=== PATIENT | male | born 1985 ===

== ENCOUNTER 2018-03-22 16:55 | Emergency (ER) | payer OTHER ==
[2018-03-22 17:26] VITALS: BP 116/74; PULSE 68; RESP 16; TEMP 98.6; O2SAT 99
--- NOTE | 2018-03-22 17:35 | ED PDOC ---
HPI: Back Time Seen by Provider: 03/22/18 17:27 Chief Complaint (Nursing): Back Pain Chief Complaint (Provider): low back pain History Per: Patient History/Exam Limitations: no limitations Onset/Duration Of Symptoms: Days (x7) Current Symptoms Are (Timing): Still Present Additional Complaint(s): 32 y/o male with a PMHx of lumbar herniated disks presents with low back pain that started last week. Aleve has helped the pain somewhat. Patient denies any acute bowel or bladder dysfunction, no fever or chills. PMD: none Past Medical History Reviewed: Historical Data, Nursing Documentation, Vital Signs Vital Signs: Last Vital Signs Temp 98.6 F 03/22/18 17:24 Pulse 68 03/22/18 17:24 Resp 16 03/22/18 17:24 BP 116/74 03/22/18 17:24 Pulse Ox 99 03/22/18 17:24 - Medical History PMH: Back Problems, Chronic Pain (Back pain) Other PMH: Herniated Disk in 2014 - Surgical History Other surgeries: right foot surgery - Family History Family History: States: No Known Family Hx - Living Arrangements Living Arrangements: With Family - Social History Current smoker - smoking cessation education provided: No Alcohol: None Drugs: Denies - Home Medications Home Medications: Ambulatory Orders Medication Instructions Recorded Cyclobenzaprine [Cyclobenzaprine 10 mg PO TID PRN #20 tab 03/22/18 HCl] Naproxen [Naprosyn] 500 mg PO BID #20 tab 03/22/18 - Allergies Allergies/Adverse Reactions: Allergies Allergy/AdvReac Type Severity Reaction Status Date / Time No Known Allergies Allergy Verified 03/22/18 17:26 Review of Systems ROS Statement: Except As Marked, All Systems Reviewed And Found Negative Constitutional: Negative for: Fever Genitourinary Male: Negative for: Dysuria, Frequency, Incontinence, Hematuria Musculoskeletal: Positive for: Back Pain Physical Exam - Reviewed Nursing Documentation Reviewed: Yes Vital Signs Reviewed: Yes - Physical Exam Appears: Positive for: Well, No Acute Distress Skin: Positive for: Normal Color Eye Exam: Positive for: Normal appearance, EOMI Neck: Positive for: Normal, Painless ROM Cardiovascular/Chest: Positive for: Regular Rate, Rhythm Respiratory: Positive for: Normal Breath Sounds Back: Positive for: Other (Left paraspinal tenderness along lumbar region with muscle spasm). Negative for: L CVA Tenderness, R CVA Tenderness Extremity: Positive for: Normal ROM. Negative for: Deformity Neurologic/Psych: Positive for: Alert, Oriented, Gait (steady). Negative for: Motor/Sensory Deficits - ECG O2 Sat by Pulse Oximetry: 99 (RA) Pulse Ox Interpretation: Normal Medical Decision Making Medical Decision Making: Impression: Acute on chronic low back pain Plan: IM toradol in ED Patient with exacerbation of chronic back pain. Prescriptions given for Naprosyn and Flexeril. He was referred to orthopedist for follow-up. Scribe Attestation: Documented by Christina Miller, acting as a scribe for Jagruti Ang PA-C. Provider Scribe Attestation: All medical record entries made by the Scribe were at my direction and personally dictated by me. I have reviewed the chart and agree that the record accurately reflects my personal performance of the history, physical exam, medical decision making, and the department course for this patient. I have also personally directed, reviewed, and agree with the discharge instructions and disposition. Disposition - Clinical Impression Clinical Impression: Back pain - Patient ED Disposition Is Patient to be Admitted: No Counseled Patient/Family Regarding: Diagnosis, Need For Followup, Rx Given - Disposition Referrals: Grzegorz Leonardo MD [Staff Provider] - Disposition: Routine/Home Disposition Time: 17:34 Condition: STABLE Additional Instructions: Take prescription meds as directed as needed for pain. Follow up as soon as possible with orthopedist for further evaluation. Prescriptions: Cyclobenzaprine [Cyclobenzaprine HCl] 10 mg PO TID PRN #20 tab PRN Reason: Muscle Spasm Naproxen [Naprosyn] 500 mg PO BID #20 tab Instructions: Low Back Pain in Adults, Back Exercises Forms: [employer] (Bengali), [facility] ED School/Work Excuse
== END 2018-03-22 18:54 | disposition home or self-care (01) ==
LOC: H.ER 16:55
DX: G89.29 Other chronic pain (principal)
CPT/HCPCS: 96372; 99283; J1885

== ENCOUNTER 2018-06-16 13:45 | Emergency (ER) | payer OTHER ==
[2018-06-16 14:33] VITALS: RESP 18
--- NOTE | 2018-06-16 15:17 | ED PDOC ---
History of Present Illness History of Present Illness: Pt seen and examined at bedside with attending. 32M no PSH/PMH p/w 1 day of body aches with associated decrease in appetite, headache, and 1 episode of non-bloody diarrhea that all developed starting at 6am this morning. He denies SOB, ear pain, cough, N/V, further episodes of diarrhea, dysuria, but [id number] may be the sick contact. PMD: None Smokes: yes HPI: Influenza Chief Complaint: Flu-like Symptoms Past Medical History Vital Signs: Last Vital Signs Temp 37.3 C 06/16/18 14:30 Pulse 80 06/16/18 14:30 Resp 18 06/16/18 14:30 BP Pulse Ox 100 06/16/18 14:30 - Medical History PMH: Back Problems, Chronic Pain (Back pain) Denies: Chronic Kidney Disease - Family History Family History: States: Unknown Family Hx - Home Medications Home Medications: Ambulatory Orders Medication Instructions Recorded Cyclobenzaprine [Cyclobenzaprine 10 mg PO TID PRN #20 tab 03/22/18 HCl] Naproxen [Naprosyn] 500 mg PO BID #20 tab 03/22/18 - Allergies Allergies/Adverse Reactions: Allergies Allergy/AdvReac Type Severity Reaction Status Date / Time No Known Allergies Allergy Verified 06/16/18 14:30 Review of Systems ROS Statement: Except As Marked, All Systems Reviewed And Found Negative Constitutional: Positive for: Chills Gastrointestinal: Positive for: Diarrhea (x1) Musculoskeletal: Positive for: Other (Body aches) Physical Exam - Reviewed Vital Signs Reviewed: Yes - Physical Exam Appears: Positive for: Non-toxic, No Acute Distress Head Exam: Positive for: ATRAUMATIC, NORMAL INSPECTION Skin: Positive for: Normal Color, Warm, Dry Eye Exam: Positive for: Normal appearance, EOMI, Conjunctival injection (mild) ENT: Positive for: Pharynx Is (clear), TM Is/Are (clear, no erythema or bulging) Neck: Positive for: Supple Cardiovascular/Chest: Positive for: Regular Rate, Rhythm Respiratory: Positive for: Normal Breath Sounds. Negative for: Crackles, Rales, Rhonchi, Wheezing Gastrointestinal/Abdominal: Positive for: Bowel Sounds, Soft. Negative for: Tenderness Neurologic/Psych: Positive for: Alert, Oriented Medical Decision Making Medical Decision Making: Suspect viral in etiology. - Rapid Flu - Tylenol 650mg - Reeval 1641 - Influenza negative - ECG O2 Sat by Pulse Oximetry: 100 Disposition - Clinical Impression Clinical Impression: Viral syndrome, URI (upper respiratory infection) - Disposition Referrals: [facility] [Outside] Disposition Time: 17:37 Condition: GOOD Instructions: Viral Upper Respiratory Infection, Adult (DC) Forms: [employer] (Mauritian)
[2018-06-16 16:50] VITALS: PULSE 69
[2018-06-16 17:36] VITALS: O2SAT 100
[2018-06-16 17:38] VITALS: BP 109/67; TEMP 98.2
== END 2018-06-16 17:35 | disposition home or self-care (01) ==
LOC: H.ER 13:45
DX: B34.9 Viral infection, unspecified (principal)

== ENCOUNTER 2018-10-01 21:40 | Emergency (ER) | payer OTHER ==
[2018-10-01 21:46] VITALS: O2SAT 100
[2018-10-01] MEDS ORDERED: Albuterol 0.083% Inhal Sol (2.5 mg/3 mL) UD INH STA ×2 (22:31)
[2018-10-01] MEDS ORDERED: Albuterol 0.083% Inhal Sol (2.5 mg/3 mL) UD ONE (22:45)
--- NOTE | 2018-10-01 23:16 | ED PDOC ---
HPI: Chest Pain Time Seen by Provider: 10/01/18 22:14 Chief Complaint (Nursing): Chest Pain Chief Complaint (Provider): Chest Pain History Per: Patient History/Exam Limitations: no limitations Onset/Duration Of Symptoms: Days (x1) Current Symptoms Are (Timing): Still Present Additional Complaint(s): 32 y/o male with no significant PMHx presents to the ED for evaluation of chest congestion and pain since yesterday. Patient reports of chest pain is associated with a fever and a sputum productive cough. Patient describes sputum as white phlegm with dark discoloration. Of note, patient is an active smoker and smokes about one pack of cigarettes every three days. Otherwise, patient denies any cough. PMD: none provided Past Medical History Reviewed: Historical Data, Nursing Documentation, Vital Signs Vital Signs: Last Vital Signs Temp 98.1 F 10/01/18 21:43 Pulse 77 10/01/18 21:43 Resp 16 10/01/18 21:43 BP 123/80 10/01/18 21:43 Pulse Ox 100 10/01/18 21:43 - Medical History PMH: Back Problems, Chronic Pain (Back pain) Denies: Chronic Kidney Disease - Surgical History Surgical History: No Surg Hx - Family History Family History: States: Unknown Family Hx - Social History Current smoker - smoking cessation education provided: Yes (one pack every three days) - Home Medications Home Medications: Ambulatory Orders Medication Instructions Recorded Cyclobenzaprine [Cyclobenzaprine 10 mg PO TID PRN #20 tab 03/22/18 HCl] Naproxen [Naprosyn] 500 mg PO BID #20 tab 03/22/18 Albuterol Sulfate [Ventolin Hfa] 1 puff IH Q4 PRN #1 ml 10/02/18 Benzonatate [Tessalon Perle] 100 mg PO TID #20 capsule 10/02/18 predniSONE [predniSONE Tab] 60 mg PO DAILY #9 tab 10/02/18 - Allergies Allergies/Adverse Reactions: Allergies Allergy/AdvReac Type Severity Reaction Status Date / Time No Known Allergies Allergy Verified 06/16/18 14:30 Review of Systems ROS Statement: Except As Marked, All Systems Reviewed And Found Negative Constitutional: Positive for: Fever. Negative for: Chills Cardiovascular: Positive for: Chest Pain (and congestion) Respiratory: Positive for: Cough Physical Exam - Reviewed Nursing Documentation Reviewed: Yes Vital Signs Reviewed: Yes - Physical Exam Appears: Positive for: No Acute Distress Head Exam: Positive for: ATRAUMATIC, NORMOCEPHALIC Skin: Positive for: Normal Color, Warm, Dry Eye Exam: Positive for: Normal appearance, EOMI, PERRL Neck: Positive for: Normal, Painless ROM, Supple Cardiovascular/Chest: Positive for: Regular Rate, Rhythm. Negative for: Murmur Respiratory: Positive for: Wheezing (biltareal expiratory wheeze). Negative for: Respiratory Distress Gastrointestinal/Abdominal: Positive for: Normal Exam, Soft. Negative for: Tenderness Extremity: Positive for: Normal ROM. Negative for: Deformity Neurologic/Psych: Positive for: Alert, Oriented, Other (speaking full sentences). Negative for: Motor/Sensory Deficits - ECG O2 Sat by Pulse Oximetry: 100 (RA) Pulse Ox Interpretation: Normal Medical Decision Making Medical Decision Making: Time: 2145 A/P: Patient with shortness of breath, active smoker -- Likely bronchospasms or bronchitis. -- Possibly beginning of COPD -- Will give albuterol and Prednisone -- Will check CXR -- EKG Time: 2230 Plan: -- CXR Two Views -- Albuterol 0.083% 2.5 mg INH -- Albuterol 0.083% 2.5 mg INH -- PredniSONE 40 mg PO -- Peak Flow Pre/Post Tx Time: 0000 --Patient improved --CXR negative for infiltrate, no PNA --Will treat for bronchitis with albuterol neb and steroid --Advised smoking cessation --Will refer to [facility] --Well appearing upon discharge Scribe Attestation: Documented by Christina Miller, acting as a scribe for Rich Garay MD. Provider Scribe Attestation: All medical record entries made by the Scribe were at my direction and personally dictated by me. I have reviewed the chart and agree that the record accurately reflects my personal performance of the history, physical exam, medical decision making, and the department course for this patient. I have also personally directed, reviewed, and agree with the discharge instructions and disposition. Disposition - Clinical Impression Clinical Impression: Bronchitis - Patient ED Disposition Is Patient to be Admitted: No - Disposition Referrals: [facility] [Outside] Disposition: Routine/Home Disposition Time: 00:07 Condition: IMPROVED Prescriptions: Albuterol Sulfate [Ventolin Hfa] 1 puff IH Q4 PRN #1 ml PRN Reason: Wheezing Benzonatate [Tessalon Perle] 100 mg PO TID #20 capsule predniSONE [predniSONE Tab] 60 mg PO DAILY #9 tab Instructions: Acute Bronchitis Forms: [facility] (Lithuanian)
[2018-10-02 00:14] VITALS: BP 118/70; PULSE 71; RESP 18; TEMP 98
--- NOTE | 2018-10-02 09:15 | RAD ---
Date of service: 10/01/2018 HISTORY: wheezing COMPARISON: No prior. TECHNIQUE: Chest PA and lateral FINDINGS: LUNGS: No active pulmonary disease. PLEURA: No significant pleural effusion identified. No pneumothorax apparent. CARDIOVASCULAR: No aortic atherosclerotic calcification present. Normal cardiac size. No pulmonary vascular congestion. OSSEOUS STRUCTURES: No significant abnormalities. VISUALIZED UPPER ABDOMEN: Normal. OTHER FINDINGS: None. IMPRESSION: No active disease.
--- NOTE | 2018-10-02 15:25 | CARD ---
APPROVED REPORT Date of service: 10/01/2018 EKG Measurement Heart [id number] <Conclusion> Sinus rhythm with marked sinus arrhythmia Otherwise normal ECG
== END 2018-10-02 00:13 | disposition home or self-care (01) ==
LOC: H.ER 21:40
DX: J40 Bronchitis, not specified as acute or chronic (principal); F17.210 Nicotine dependence, cigarettes, uncomplicated; G89.29 Other chronic pain